=== PATIENT | male | born 1980 | race American Indian/Alaskan Native ===

== ENCOUNTER 2017-08-25 10:07 | Emergency (ER) | payer MEDICAID, OTHER ==
[2017-08-25 10:52] VITALS: BP 140/80; PULSE 61; RESP 18; O2SAT 100; BMI 32.3
[2017-08-25] MEDS ORDERED: cefTRIAXone (Rocephin) 250 mg Inj IM STA (10:59)
--- NOTE | 2017-08-25 11:22 | ED PDOC ---
Arrival/HPI - General Chief Complaint: Abdominal Pain Time Seen by Provider: 08/25/17 10:09 Historian: Patient - History of Present Illness Narrative History of Present Illness (Text): 08/25/17 11:18 Pt is a 37 yr old male who presents to the emergency department burning on urination x 4 days after having unprotected sex with a female partner who tested positive for chlamydia. Pt says the encounter was 1 wk ago and was informed by the partner 4 days later that she has chlamydia. Pt says he was already having dysuria but denies purulent dc, hematuria, penile lesions or swelling, fever, chest pain, shortness of breath back pain, or any other complaints. Time/Duration: < week Symptom Onset: Sudden Symptom Course: Unchanged, Worsening Quality: Aching, Pressure Severity Level: 2 Activities at Onset: Rest, Light Context: Home Past Medical History - Provider Review Nursing Documentation Reviewed: Yes - Travel History Have you recently traveled outside [place] w/in the past 3 mons?: No - Cardiac Hx Cardiac Disorders: No - Pulmonary Hx Respiratory Disorders: Yes Hx Asthma: Yes - Neurological Hx Neurological Disorder: No - HEENT Hx HEENT Disorder: No - Renal Hx Renal Disorder: No - Endocrine/Metabolic Hx Endocrine Disorders: No - Hematological/Oncological Hx Blood Disorders: No - Integumentary Hx Dermatological Disorder: No - Musculoskeletal/Rheumatological Hx Musculoskeletal Disorders: No - Gastrointestinal Hx Gastrointestinal Disorders: No - Genitourinary/Gynecological Hx Genitourinary Disorders: No - Psychiatric Hx Psychophysiologic Disorder: No Hx Substance Use: No Family/Social History - Physician Review Nursing Documentation Reviewed: Yes Family/Social History: Unknown Family HX Smoking Status: Current Some Days Smoker Hx Alcohol Use: Yes Frequency of alcohol use: Socially Hx Substance Use: No Allergies/Home Meds Allergies/Adverse Reactions: Allergies No Known Allergies Allergy (Verified 08/25/17 10:45) Home Medications: Home Meds Medication Instructions Recorded Confirmed No Known Home Med 08/25/17 08/25/17 Review of Systems - Review of Systems Constitutional: Normal Eyes: Normal ENT: Normal Respiratory: Normal Cardiovascular: Normal Gastrointestinal: Abdominal Pain. absent: Nausea, Vomiting Genitourinary Male: Dysuria. absent: Frequency, Hematuria, Urinary Output Changes Musculoskeletal: Normal Skin: Normal Neurological: Normal Endocrine: Normal Hemo/Lymphatic: Normal Psychiatric: Normal Physical Exam Vital Signs Reviewed: Yes Vital Signs Pulse Resp BP Pulse Ox 08/25/17 10:46 61 18 140/80 100 Temperature: Afebrile Blood Pressure: Normal Pulse: Regular Respiratory Rate: Normal Appearance: Positive for: Well-Appearing, Non-Toxic, Comfortable Pain Distress: None Mental Status: Positive for: Alert and Oriented X 3 - Systems Exam Head: Present: Atraumatic, Normocephalic Neck: Present: Normal Range of Motion Respiratory/Chest: Present: Clear to Auscultation, Good Air Exchange. No: Respiratory Distress, Accessory Muscle Use Cardiovascular: Present: Regular Rate and Rhythm, Normal S1, S2. No: Murmurs Abdomen: Present: Tenderness (suprapubic), Normal Bowel Sounds. No: Distention , Peritoneal Signs Genitourinary Male: Present: Normal External Genitalia. No: Lesions, Penile Discharge, Testicle Tenderness, Penile Swelling Back: Present: Normal Inspection. No: CVA Tenderness, Midline Tenderness, Paraspinal Tenderness, Pain with Leg Raise Upper Extremity: Present: Normal Inspection. No: Cyanosis, Edema Lower Extremity: Present: Normal Inspection. No: Edema Neurological: Present: GCS=15, CN II-XII Intact, Speech Normal Skin: Present: Warm, Dry, Normal Color. No: Rashes Lymphatic: No: Cervical Adenopathy, Axillary Adenopathy, Inguinal Adenopathy, Other Psychiatric: Present: Alert, Oriented x 3, Normal Insight, Normal Concentration Medical Decision Making ED Course and Treatment: 08/25/17 11:22 Impression Pt is a 37 yr old male who presents to the emergency department burning on urination x 4 days after having unprotected sex with a female partner who tested positive for chlamydia. Plan Urinalysis Cef 250mg IM and Azithro 1g PO STAT Ppx assess and dispo Progress Note Advised pt of delay in GC results but need to tx UTI if present Waited for UA results but had to return to work; advised pt that if UA/GC/ chlamydia positive will contact Counseled on safe sex and f/u with PMD VSS on dc - Medication Orders Current Medication Orders: Discontinued Medications Azithromycin (Zithromax) 1,000 mg PO STAT STA PRN Reason: Protocol Stop: 08/25/17 11:01 Last Admin: 08/25/17 11:29 Dose: 1,000 mg Ceftriaxone Sodium (Rocephin) 250 mg IM STAT STA PRN Reason: Protocol Stop: 08/25/17 11:00 Last Admin: 08/25/17 11:29 Dose: 250 mg IM Administration Charges Document 08/25/17 11:29 [facility] (Rec: 08/25/17 11:29 [facility] [id number]) Injection Site MAR Injection Site Right Deltoid Charges for Administration # of IM Administrations 1 Disposition/Present on Arrival - Present on Arrival Any Indicators Present on Arrival: Yes History of DVT/PE: No History of Uncontrolled Diabetes: No Urinary Catheter: No History of Decub. Ulcer: No History Surgical Site Infection Following: None - Disposition Have Diagnosis and Disposition been Completed?: Yes Diagnosis: STD exposure, Dysuria Disposition: HOME/ ROUTINE Disposition Time: 12:12 Patient Plan: Discharge Condition: GOOD Discharge Instructions (ExitCare): Chlamydia and Gonorrhea, Dysuria, Adult (DC) Additional Instructions: Tao, thank you for letting us take care of you today. Your provider was JANES Trujillo. You were treated for STD Screening. The emergency medical care you received today was directed at your acute symptoms. If you were prescribed any medication, please fill it and take as directed. It may take several days for your symptoms to resolve. Return to the Emergency Department if your symptoms worsen, do not improve, or if you have any other problems. Please contact your doctor or call one of the physicians/clinics you have been referred to that are listed on the Patient Visit Information form that is included in your discharge packet. Bring any paperwork you were given at discharge with you along with any medications you are taking to your follow up visit. Our treatment cannot replace ongoing medical care by a primary care provider (PCP) outside of the emergency department. Thank you for allowing the [facility] team to be part of your care today. If you had a blood, urine, or wound culture: It will take several days for the results, if any change in treatment is needed we will contact you. If you had an STI test: It will take 48 hours for the results. Please call after 1 week if you have not heard back. Referrals: PCP,NO [Primary Care Provider] - Follow up with primary Forms: [employer] (Ind[place]ian), WORK NOTE
== END 2017-08-25 12:55 | disposition home or self-care (01) ==
LOC: MERGE 10:07 → ED 10:07
DX: Z20.2 Contact with and (suspected) exposure to infections with a predominantly sexual mode of transmission (principal); R30.0 Dysuria; F17.200 Nicotine dependence, unspecified, uncomplicated
CPT/HCPCS: 96372; 99283; J0696